=== PATIENT | male | born 1985 | race Caucasian/White ===

== ENCOUNTER 2019-09-25 07:06 | Emergency (ER) | payer SELFPAY ==
[~2019-09-25] VITALS: Ht 180.3 cm; Wt 75.0 kg
[2019-09-25] MEDS ORDERED: BACITRACIN ZINC OINT UDPKT TOP ONE (08:00)
[2019-09-25] MEDS ORDERED: LIDOCAINE HCL/PF 1% 10 MG/ML 5ML VIAL IJ ONE (08:00)
[2019-09-25] MEDS ORDERED: ACETAMINOPHEN 500MG TABLET PO ONE (08:00)
[2019-09-25 10:03] VITALS: BP 139/77
== END 2019-09-25 10:04 | disposition home or self-care (01) ==
LOC: ER 07:06
DX: S01.01XA Laceration without foreign body of scalp, initial encounter (principal); W20.8XXA Other cause of strike by thrown, projected or falling object, initial encounter; Y93.89 Activity, other specified; Y92.89 Other specified places as the place of occurrence of the external cause
CPT/HCPCS: 12002; 70450; 99284; A4217; J3490; Z7610

== ENCOUNTER 2019-09-27 12:18 | Emergency (ER) | payer SELFPAY ==
[~2019-09-27] VITALS: Ht 180.3 cm; Wt 73.0 kg
[2019-09-27 13:33] VITALS: BP 127/79
== END 2019-09-27 13:34 | disposition home or self-care (01) ==
LOC: ER 12:18
DX: S01.01XD Laceration without foreign body of scalp, subsequent encounter (principal); W18.39XD Other fall on same level, subsequent encounter; Z88.0 Allergy status to penicillin
CPT/HCPCS: 99281

== ENCOUNTER 2019-10-09 13:11 | Emergency (ER) | payer MEDICAID ==
[~2019-10-09] VITALS: Ht 180.3 cm; Wt 72.0 kg
[2019-10-09 13:24] VITALS: BP 143/83
== END 2019-10-09 15:22 | disposition home or self-care (01) ==
LOC: ER 13:11
DX: Z48.02 Encounter for removal of sutures (principal)
CPT/HCPCS: 99281